=== PATIENT | male | born 1950 | race Hispanic/Latino ===

== ENCOUNTER 2017-02-12 15:00 | Inpatient (IN) | payer OTHER ==
[~2017-02-12] VITALS: Ht 171.4 cm; Wt 97.8 kg
[~2017-02-12 15:00] MED LIST: FISH1CAP27 PO; IBUP-2076 PO; MULT-40 PO
[2017-07-30 15:55] VITALS: BP 132/71
[2017-07-30 16:10] LABS: APPEARANCE,URINE Clear (CLEAR); BILIRUBIN,URINE Negative (NEGATIVE); COLOR,URINE Yellow (YELLOW); GLUCOSE, URINE (UA) Negative (NEGATIVE); KETONES,URINE Negative (NEGATIVE); LEUKOCYTE ESTERASE ,URINE Negative (NEGATIVE); NITRATE,URINE Negative (NEGATIVE); OCCULT BLOOD,URINE Negative (NEGATIVE); PH,URINE 6.5 (5.0-8.0); PROTEIN,URINE Negative (NEGATIVE)
[2017-07-30] MEDS ORDERED: PRAV40TA3 PO (16:12)
[2017-07-30] MEDS ORDERED: OMEP40CA37 PO (16:12)
[2017-07-30 16:13] LABS: CREATININE 0.9 mg/dL (0.5-1.5); POTASSIUM 4.3 mmol/L (3.5-5.1)
[2017-07-30 16:31] LABS: INR 0.99 (0.85-1.15); PARTIAL THROMBOPLASTIN TIME 26.7 SEC (26.3-35.5); PROTHROMBIN TIME 10.4 SEC (9.6-11.6)
[2017-07-30 16:38] LABS: BASOPHILS % (AUTO) 0.8 % (0.0-5.0); EOSINOPHILS % (AUTO) 5.6 % (0.0-8.0); HEMATOCRIT 42.6 % (42-54); LYMPHOCYTES % (AUTO) 35.5 % (21.0-51.0); MEAN CORPUSCULAR HEMOGLOBIN 30.8 pg (27.0-33.0); MEAN CORPUSCULAR HGB CONC 34.5 g/dL (32.0-36.0); MEAN CORPUSCULAR VOLUME 89.3 fL (79-99); MONOCYTES % (AUTO) 10.7 % (3.0-13.0); NEUTROPHILS % (AUTO) 47.4 % (40.0-77.0); PLATELET COUNT (AUTO) 182 K/uL (130-400); RED BLOOD CELL COUNT(AUTO) 4.77 MIL/uL (4.50-6.20); RED CELL DISTRIBUTION WIDTH 12.9 % (11.0-15.5); WHITE BLOOD COUNT (AUTO) 7.8 K/uL (4.8-10.8)
[2017-08-02] VITALS (23 sets, daily range): BP systolic 112–135; BP diastolic 53–86
[2017-08-02] MEDS: CEFAZOLIN SODIUM 1 GM VIAL IVP SCH ×3 (09:30→18:19)
[2017-08-02] MEDS ORDERED: LACTATED RINGERS 1000ML 1,000 ML IV ONE (09:47)
[2017-08-02] MEDS ORDERED: LIDOCAINE PF 2% 5ML ABBOJECT ONE (09:54)
[2017-08-02] MEDS ORDERED: PROPOFOL 10 MG/ML 20ML VIAL IV ONE (09:54)
[2017-08-02] MEDS ORDERED: NEOSTIGMINE METHYLSULFATE 1MG/ML IV ONE (09:54)
[2017-08-02] MEDS ORDERED: DEXAMETHASONE SOD PHOSPHATE 10MG/ML 1ML VIAL ONE (09:54)
[2017-08-02] MEDS ORDERED: MIDAZOLAM HCL 1 MG/ML 2ML VIAL ONE (09:54)
[2017-08-02] MEDS ORDERED: ONDANSETRON HCL 4 MG/2 ML VIAL ONE ×2 (09:54→14:49)
[2017-08-02] MEDS ORDERED: SUCCINYLCHOLINE 200MG/10ML SYR ONE (09:54)
[2017-08-02] MEDS ORDERED: FENTANYL CITRATE PF 50 MCG/1 ML 2ML VIAL ONE ×2 (09:55→11:31)
[2017-08-02] MEDS ORDERED: TRANEXAMIC ACID 1000MG/10ML IV ONE (09:56)
[2017-08-02] MEDS ORDERED: BUPIVACAINE/EPI/PF 0.25% 30ML VIAL IJ ONE (09:56)
[2017-08-02] MEDS ORDERED: CEFAZOLIN SODIUM 1 GM VIAL ONE ×2 (09:56→11:20)
[2017-08-02] MEDS ORDERED: ACETAMINOPHEN EXTRA STRENGTH 500 MG TABLET ONE (10:20)
[2017-08-02] MEDS ORDERED: KETOROLAC TROMETHAMINE 15MG/ML ONE (10:20)
[2017-08-02] MEDS ORDERED: OXYCODONE HCL 10 MG TAB.SR.12H PO ONE (10:21)
[2017-08-02] MEDS ORDERED: METOCLOPRAMIDE 10 MG/2 ML VIAL ONE (10:21)
[2017-08-02] MEDS ORDERED: CELECOXIB 200 MG CAP ONE (10:21)
[2017-08-02] MEDS ORDERED: GLYCOPYRROLATE 0.2 MG/ML 5 ML VIAL ONE (13:06)
[2017-08-02] MEDS ORDERED: LIDOCAINE HCL-MPF 1% 2ML VIAL IVP PRN (13:15)
[2017-08-02] MEDS ORDERED: FERROUS FUMARATE 324 MG TABLET PO PRN (13:15)
[2017-08-02] MEDS ORDERED: POTASSIUM CHLORIDE 20MEQ/100ML 100 ML IV PRN (13:15)
[2017-08-02] MEDS: ACETAMINOPHEN 325 MG TAB PO SCH ×2 (13:15→18:20)
[2017-08-02] MEDS ORDERED: POTASSIUM CHLORIDE 20 MEQ ERTAB PO PRN (13:15)
[2017-08-02] MEDS ORDERED: POTASSIUM CHLORIDE 10% ELIXIR 20 MEQ/15 ML UDCUP PO PRN (13:15)
[2017-08-02] MEDS ORDERED: TEMAZEPAM 15 MG CAPSULE PO PRN (13:15)
[2017-08-02] MEDS ORDERED: DIPHENHYDRAMINE HCL 25 MG CAPSULE PO PRN (13:15)
[2017-08-02] MEDS ORDERED: DiphenhydrAMINE HCL 50 MG/ML VIAL IVP PRN (13:15)
[2017-08-02] MEDS ORDERED: PROMETHAZINE HCL 25 MG/ML 1ML AMPULE IM PRN (13:15)
[2017-08-02] MEDS ORDERED: OXYCODONE HCL 5 MG TAB PO PRN ×2 (13:15)
[2017-08-02] MEDS ORDERED: KETOROLAC TROMETHAMINE 15MG/ML IV PRN (13:15)
[2017-08-02] MEDS ORDERED: MEPERIDINE-PF 25 MG/ML SYG ONE ×2 (14:13→14:48)
[2017-08-02] MEDS: SODIUM CHLORIDE 0.9% 1000ML 1,000 ML IV SCH ×2 (16:26→23:36)
[2017-08-02] MEDS ORDERED: CEFAZOLIN 2GM / 50 ML 50 ML IV SCH (18:15)
[2017-08-02] MEDS ORDERED: IBUPROFEN 400 MG TABLET PO PRN (19:00)
[2017-08-02] MEDS: ATORVASTATIN CALCIUM 10 MG TABLET PO SCH (19:58)
[2017-08-02] MEDS: PREGABALIN 25 MG CAP PO SCH (19:58)
[2017-08-02] MEDS: CELECOXIB 200 MG CAP PO SCH (19:58)
[2017-08-02] MEDS: ASPIRIN 325 MG TABLET PO SCH (19:58)
[2017-08-02] MEDS: FAMOTIDINE 20MG TAB 20 MG TAB PO SCH (19:58)
[2017-08-03] VITALS: BP 115/70
[2017-08-03] MEDS: CEFAZOLIN SODIUM 1 GM VIAL IVP SCH (02:05)
[2017-08-03] MEDS: ACETAMINOPHEN 325 MG TAB PO SCH ×4 (02:06→20:08)
[2017-08-03 04:00] VITALS: BP 113/66
[2017-08-03 05:50] LABS: HEMATOCRIT 35.3 % (42-54); MEAN CORPUSCULAR HEMOGLOBIN 30.6 pg (27.0-33.0); MEAN CORPUSCULAR HGB CONC 34.3 g/dL (32.0-36.0); MEAN CORPUSCULAR VOLUME 89.1 fL (79-99); PLATELET COUNT (AUTO) 156 K/uL (130-400); RED BLOOD CELL COUNT(AUTO) 3.97 MIL/uL (4.50-6.20); RED CELL DISTRIBUTION WIDTH 13.1 % (11.0-15.5)
[2017-08-03 06:16] LABS: CREATININE 0.8 mg/dL (0.5-1.5); POTASSIUM 4.1 mmol/L (3.5-5.1)
[2017-08-03 07:38] VITALS: BP 121/55
[2017-08-03] MEDS: POLYETHYLENE GLYCOL 3350 17 GM POWD.PACK PO SCH (08:25)
[2017-08-03] MEDS: ASPIRIN 325 MG TABLET PO SCH ×2 (08:26→20:08)
[2017-08-03] MEDS: FISH OIL 1000 MG/CAP PO SCH (08:26)
[2017-08-03] MEDS: MULTIVITAMIN TABLET PO SCH (08:26)
[2017-08-03] MEDS: TAMSULOSIN HCL 0.4 MG CAP.ER.24H PO SCH (08:26)
[2017-08-03] MEDS: FAMOTIDINE 20MG TAB 20 MG TAB PO SCH ×2 (08:26→20:08)
[2017-08-03] MEDS: PREGABALIN 25 MG CAP PO SCH ×2 (08:26→20:09)
[2017-08-03] MEDS: CELECOXIB 200 MG CAP PO SCH ×2 (08:26→20:08)
[2017-08-03] MEDS: PANTOPRAZOLE SODIUM 40 MG TABLET.DR PO SCH (08:27)
[2017-08-03] MEDS: CALCIUM CARBONATE 500 MG TABLET PO PRN ×2 (08:27→20:12)
[2017-08-03] MEDS: TRAMADOL HCL 50 MG TABLET PO PRN ×2 (08:31→18:28)
[2017-08-03] MEDS: SODIUM CHLORIDE 0.9% 1000ML 1,000 ML IV SCH (09:56)
[2017-08-03 11:26] VITALS: BP 136/53
[2017-08-03] MEDS: PSYLLIUM SEED 1 EACH PACKET PO SCH (12:54)
[2017-08-03 16:20] VITALS: BP 115/57
[2017-08-03 20:00] VITALS: BP 124/67
[2017-08-03] MEDS: ATORVASTATIN CALCIUM 10 MG TABLET PO SCH (20:08)
[2017-08-04] VITALS: BP 144/69
[2017-08-04] MEDS: ACETAMINOPHEN 325 MG TAB PO SCH ×4 (01:37→18:18)
[2017-08-04 04:00] VITALS: BP 127/73
[2017-08-04 04:05] LABS: HEMATOCRIT 30.5 % (42-54); MEAN CORPUSCULAR HEMOGLOBIN 32.4 pg (27.0-33.0); MEAN CORPUSCULAR HGB CONC 36.4 g/dL (32.0-36.0); MEAN CORPUSCULAR VOLUME 89.1 fL (79-99); PLATELET COUNT (AUTO) 135 K/uL (130-400); RED BLOOD CELL COUNT(AUTO) 3.43 MIL/uL (4.50-6.20); RED CELL DISTRIBUTION WIDTH 13.3 % (11.0-15.5); WHITE BLOOD COUNT (AUTO) 12.3 K/uL (4.8-10.8)
[2017-08-04 04:19] LABS: CREATININE 0.9 mg/dL (0.5-1.5)
[2017-08-04 07:46] VITALS: BP 125/72
[2017-08-04] MEDS: TAMSULOSIN HCL 0.4 MG CAP.ER.24H PO SCH (08:57)
[2017-08-04] MEDS: PANTOPRAZOLE SODIUM 40 MG TABLET.DR PO SCH (08:57)
[2017-08-04] MEDS: POLYETHYLENE GLYCOL 3350 17 GM POWD.PACK PO SCH (08:57)
[2017-08-04] MEDS: TRAMADOL HCL 50 MG TABLET PO PRN (08:57)
[2017-08-04] MEDS: CALCIUM CARBONATE 500 MG TABLET PO PRN (08:57)
[2017-08-04] MEDS: ASPIRIN 325 MG TABLET PO SCH (08:57)
[2017-08-04] MEDS: CELECOXIB 200 MG CAP PO SCH (08:57)
[2017-08-04] MEDS: MULTIVITAMIN TABLET PO SCH (08:57)
[2017-08-04] MEDS: FAMOTIDINE 20MG TAB 20 MG TAB PO SCH (08:57)
[2017-08-04] MEDS: FISH OIL 1000 MG/CAP PO SCH (08:57)
[2017-08-04] MEDS: PREGABALIN 25 MG CAP PO SCH (09:04)
[2017-08-04 11:52] VITALS: BP 138/68
[2017-08-04] MEDS: PSYLLIUM SEED 1 EACH PACKET PO SCH (12:07)
[2017-08-04] MEDS ORDERED: BISACODYL 5 MG TABLET.DR PO PRN (13:15)
[2017-08-04] MEDS ORDERED: ASPI-1012 PO (13:39)
[2017-08-04] MEDS ORDERED: HYDR-309 PO (13:39)
[2017-08-04 16:13] VITALS: BP 124/70
[2017-08-04] MEDS ORDERED: TAMS-1 PO (16:40)
[2017-08-05] MEDS ORDERED: BISACODYL 10 MG SUPP.RECT RC PRN (13:15)
== END 2017-08-04 18:38 | DRG 470 ==
LOC: DAHIP 08-02 09:03 → 4AH 08-02 14:33 → EDSTATUS 08-02 15:30
PROVIDERS: ADMIT Orthopaedic Surgery; ATTEND Orthopaedic Surgery
PROC: 0SRD0J9 Replacement of Left Knee Joint with Synthetic Substitute, Cemented, Open Approach (ICD-10-PCS; principal; 2017-08-02 10:35)
DX: M17.12 Unilateral primary osteoarthritis, left knee (principal); E78.5 Hyperlipidemia, unspecified; M19.90 Unspecified osteoarthritis, unspecified site; G89.29 Other chronic pain; Z28.21 Immunization not carried out because of patient refusal
CPT/HCPCS: 36415; 80048; 81003; 85025; 85027; 85610; 85730; 88305; 88311; 96374; 96375; A4218; C1713; J0330; J0690; J1100; J1885; J2001; J2175; J2250; J2405; J2704; J2710; J2765; J3010; J3490; J7030; J7120

== ENCOUNTER 2022-06-05 20:38 | Emergency (ER) | payer OTHER ==
[~2022-06-05] VITALS: Ht 175.3 cm; Wt 100.7 kg
[~2022-06-05 20:38] MED LIST changes: +ASPI-1012 PO; +HYDR-4457 PO; -IBUP-2076 PO; +OMEP40CA21 PO; +PRAV40TA3 PO; +TAMS-1 PO
[2022-06-05 21:29] LABS: BASOPHILS % (AUTO) 0.4 % (0.0-5.0); HEMATOCRIT 43.4 % (42-54); LYMPHOCYTES % (AUTO) 14.8 % (21.0-51.0); MEAN CORPUSCULAR HEMOGLOBIN 30.2 pg (27.0-33.0); MEAN CORPUSCULAR HGB CONC 33.9 g/dL (32.0-36.0); MEAN CORPUSCULAR VOLUME 89.3 fL (79-99); MONOCYTES % (AUTO) 4.5 % (3.0-13.0); NEUTROPHILS % (AUTO) 78.9 % (40.0-77.0); PLATELET COUNT (AUTO) 185 K/uL (130-400); RED BLOOD CELL COUNT(AUTO) 4.86 MIL/uL (4.50-6.20); RED CELL DISTRIBUTION WIDTH 12.9 % (11.0-15.5); WHITE BLOOD COUNT (AUTO) 11.3 K/uL (4.8-10.8)
[2022-06-05 21:47] LABS: ALBUMIN 3.8 g/dL (3.5-5.0); TOTAL PROTEIN, SERUM 7.7 g/dL (6.0-8.3)
[2022-06-05] MEDS ORDERED: FAMOTIDINE 20MG VIAL IV ONE (22:00)
[2022-06-05] MEDS ORDERED: PROCHLORPERAZINE 10MG/2ML INJ IV ONE (22:00)
[2022-06-06 00:26] LABS: APPEARANCE,URINE CLEAR (CLEAR); BILIRUBIN,URINE NEGATIVE (NEGATIVE); COLOR,URINE LIGHT-YELLOW (YELLOW); GLUCOSE, URINE (UA) NEGATIVE (NEGATIVE); KETONES,URINE 5 mg/dL (NEGATIVE); LEUKOCYTE ESTERASE ,URINE NEGATIVE Leu/uL (NEGATIVE); NITRATE,URINE NEGATIVE (NEGATIVE); OCCULT BLOOD,URINE NEGATIVE (NEGATIVE); PH,URINE 7.5 (5.0-8.0); PROTEIN,URINE NEGATIVE (NEGATIVE); UROBILINOGEN,URINE 0.2 mg/dL (0.2-1.0)
[2022-06-06] MEDS ORDERED: MECLIZINE HCL 25 MG TABLET PO ONE (01:30)
[2022-06-06 01:42] VITALS: BP 128/82
[2022-06-06] MEDS ORDERED: MECL-226 PO (02:05)
== END 2022-06-06 02:24 | disposition home or self-care (01) ==
LOC: EDH 20:38
DX: R42 Dizziness and giddiness (principal); E78.00 Pure hypercholesterolemia, unspecified; I10 Essential (primary) hypertension; Z79.82 Long term (current) use of aspirin; Z79.899 Other long term (current) drug therapy; Z98.890 Other specified postprocedural states
CPT/HCPCS: 99284; 96374; 96375; 84484 ×2; 80053; 83690; 85025; 81003; 36415; 93005; J3490; J0780

== ENCOUNTER 2025-02-06 09:36 | Observation (INO) | payer OTHER, MEDICARE ==
[2025-02-02 11:43] LABS: IMMATURE GRANULOCYTE ABSOLUTE 0.02 K/uL (0-1); NUCLEATED RED BLOOD CELLS 0.0 % (0.0-0.19); PLATELET COUNT (AUTO) 191 K/uL (130-400); RED BLOOD CELL COUNT(AUTO) 4.55 MIL/uL (4.50-6.20); RED CELL DISTRIBUTION WIDTH 13.0 % (11.0-15.5); WHITE BLOOD COUNT (AUTO) 8.9 K/uL (4.8-10.8)
[2025-02-02 11:44] VITALS: BP 104/67; PULSE 80; RESP 13; TEMP 98.1
--- NOTE | 2025-02-02 11:46 | EKG ---
[facility] Test Date: 2025-02-02 Test Time: 11:32:12 Pat Name: RHINA WESLEY Department: [facility] Room: Gender: M Ssrs Report Developer: [id number] : 1950 Requested By: KATIE ALBRECHT Order Number: [id number] Reading MD: Rogelio Farias Measurements Intervals [place] Rate: 65 P: 30 WA: 172 QRS: -63 QRSD: 141 T: 74 QT: 425 QTc: 441 Interpretive Statements Sinus rhythm RBBB and LAFB Probable left ventricular hypertrophy Lateral infarct, old Compared to ECG 06/05/2022 21:30:45 Left anterior fascicular block now present Right bundle-branch block now present Left-axis deviation no longer present Myocardial infarct finding still present Electronically Signed On 02-04-2025 10:54:33 CDT by Rogelio Farias Please click the below link to view image of tracing.
[2025-02-02 11:48] LABS: APPEARANCE,URINE CLEAR (CLEAR); GLUCOSE, URINE (UA) NEGATIVE (NEGATIVE); LEUKOCYTE ESTERASE ,URINE 75 Leu/uL (NEGATIVE); NITRATE,URINE NEGATIVE (NEGATIVE); OCCULT BLOOD,URINE NEGATIVE (NEGATIVE)
[2025-02-02 11:52] LABS: CREATININE 0.8 mg/dL (0.5-1.3); GLOMERULAR FILTR. RATE CALC 92.0 mL/min (>90); GLUCOSE,RANDOM 121.0 mg/dL (70-105); SODIUM SERUM 140.0 mmol/L (136-145); UREA NITROGEN, BLOOD 12.0 mg/dL (7-18)
--- NOTE | 2025-02-02 11:53 | NUR ---
preop INCENTIVE SPIROMETRY TEACHING DONE BY JAVED SUMMERS
[2025-02-02 11:56] LABS: ADD UA MICROSCOPIC YES
[2025-02-02 11:58] LABS: SQUAMOUS EPITHELIAL CELL,UR RARE /HPF (0-2)
[2025-02-02 12:12] LABS: INR 0.99 (0.85-1.15)
--- NOTE | 2025-02-05 10:21 | NUR ---
REPORT REPORTED EKG TO DR STACY. OK TO PROCEED
[~2025-02-06] VITALS: Ht 175.3 cm; Wt 99.3 kg
[2025-02-06] VITALS (21 sets, daily range): BP systolic 113–142; BP diastolic 55–95; PULSE 52–94; RESP 18–24; TEMP 97.5–98.2; O2SAT 93
[~2025-02-06 09:36] MED LIST changes: +ACET-2743 PO; -ASPI-1012 PO; -FISH1CAP27 PO; -HYDR-4457 PO; -MULT-40 PO; -PRAV40TA3 PO; +SIMV-46 PO; -TAMS-1 PO; +TAMS-55 PO
[2025-02-06] MEDS: 0.9%NACL 1000ML 1,000 ML IV ONE (10:26)
[2025-02-06] MEDS: FAMOTIDINE 20MG VIAL IV ONE (11:59)
[2025-02-06] MEDS ORDERED: SUCCINYLCHOLINE CHLORIDE 20 MG/ML 10 ML VIAL ONE (12:58)
[2025-02-06] MEDS ORDERED: LIDOCAINE PF 100MG/5ML (2%) SYRINGE 5ML ONE (12:58)
[2025-02-06] MEDS ORDERED: GLYCOPYRROLATE 0.2 MG/ML 5 ML VIAL ONE (12:58)
[2025-02-06] MEDS ORDERED: NEOSTIGMINE METHYLSULFATE 1MG/ML IV ONE (12:59)
[2025-02-06] MEDS ORDERED: MIDAZOLAM HCL 1 MG/ML 2ML VIAL ONE (13:00)
[2025-02-06] MEDS ORDERED: TRANEXAMIC ACID 1000MG/10ML ONE (13:22)
[2025-02-06] MEDS ORDERED: VANCOMYCIN 500MG+NS 100ML 100 ML IV ONE (13:42)
[2025-02-06] MEDS ORDERED: PoTASSium chloRIDE 20MEQ ER 20 MEQ ERTAB PO PRN ×3 (16:30)
[2025-02-06] MEDS ORDERED: CALCIUM CARB 500MG PO PRN ×3 (16:30)
[2025-02-06] MEDS ORDERED: CYCLOBENZAPRINE HCL 10 MG TABLET PO PRN ×2 (16:30)
[2025-02-06] MEDS ORDERED: FERROUS FUMARATE 324 MG TABLET PO PRN ×3 (16:30)
[2025-02-06] MEDS ORDERED: PoTASSium chl 10% ELIXIR 20MEQ 20 MEQ/15 ML UDCUP PO PRN ×3 (16:30)
[2025-02-06] MEDS ORDERED: 0.9%NACL 1000ML 1,000 ML IV SCH ×2 (16:30)
[2025-02-06] MEDS: TRANEXAMIC ACID 1000MG/10ML ONE (16:47)
--- NOTE | 2025-02-06 17:21 | NUR ---
PATIENT ARRIVED ON UNIT VIA STRETCHER. NO SIGNS OF DISTRESS NOTED. WILL CONTINUE TO MONITOR AND FOLLOW THROUGH WITH ORDERS.
[2025-02-06] MEDS: 0.9%NACL 1000ML 1,000 ML IV SCH (18:00)
--- NOTE | 2025-02-06 18:59 | OP ---
Operative Note: DATE OF PROCEDURE: 02/06/25 SURGEON: KATIE ALBRECHT MD MULTIPLE DRUM SANDER: [Ilsa Barrera CFA] ANESTHESIA: [General anesthesia plus regional block] ANESTHESIOLOGIST/ELECTRICAL INSTRUMENT TECHNICIAN: [Flako Grayson CRNA] PREOPERATIVE DIAGNOSIS: [Right knee osteoarthritis] POSTOPERATIVE DIAGNOSIS: [Same] IMPLANTS: [Biomet vanguard. Femur size 67.5 right PS. Tibia size 79 fixed cruciate. Patella size 34 by 9 asymmetric. Tibial liner size 79/83 by 14 PS] PROCEDURE: [Right total knee arthroplasty] ESTIMATED BLOOD LOSS: [150 mL] INDICATIONS: [74-year-old male with a history of severe pain to the right knee secondary to osteoarthritis that has a longer responded to conservative treatment. The patient is brought to the operating room for a total knee arthroplasty, procedure that he understood as well as the risks, benefits and possible complications involved. The patient agreed signed the consent form.] DESCRIPTION OF PROCEDURE: [After adequate general anesthesia was achieved and regional block obtained the right lower extremity was prepped and draped in the usual manner previous placement of the tourniquet in the proximal thigh. The extremity was then elevated and exsanguinated with an Esmarch bandage and the tourniquet inflated to 300 mmHg the Esmarch band been then removed. With the knee in flexion a longitudinal incision was then made in the anterior aspect t hrough the skin followed by dissection of the subcutaneous tissue. A bone infusion needle was then inserted just medial to the tibial tuberosity and through this needle we injected into the bone a solution of normal saline 50 mL mixed with 500 mg of vancomycin. The needle was removed. A paramedian approach was then made with the Bovie cautery cutting through the quadriceps tendon, medial patellar retinaculum and patellar tendon retinaculum. The retropatellar tendon fat was then excised and the soft tissue elements of the tibia were elevated subperiosteally and retractors were applied medially and laterally . The anterior and posterior cruciate ligaments were resected. With the use of a drill a starting hole was made in the distal femur entering the intramedullary canal and then after removal of the drill an intramedullary guide was inserted with a 5 degree valgus block that touched the distal femur and to this the distal femoral cutting guide was then applied anteriorly and was secured to the distal femur with the use of pins. The intramedullary guide was then removed and with the use of the oscillating saw we proceeded to resect the distal femur removing the fragments and the guide. The femoral sizer was then applied distally and drill holes were made removing the sizer and the 4-in-1 cutting block was then inserted and the anterior, posterior and chamfer cuts were made removing the fragments and the block. The PS cutting guide was then inserted and the intercondylar cut was made removing the fragment and the guide. The posterior cruciate ligament retractor was then inserted posterior to the tibia and this was brought forward proceeding then to apply the external tibial alignment guide and secured the proximal cutting guide to the tibia with the use of pins. With the use of the oscillating saw the proximal cut to the tibia tibia was made. The bone fragment was removed and the trial tibia plate was chosen. At this point the menisci were removed sharply and with the use of the curved osteotome the posterior osteophytes of the femur were removed. The trial components were then inserted at the femur and tibia with a trial tibial liner bringing the knee into extension noticing that the patient had a very stable knee in flexion, extension and with valgus and varus stress. The knee was maintained in extension and the patella was then addressed proceeding to measure its thickness and then with the use of the oscillating saw we removed nine mm from the articular surface and restored the height with application of a trial component after 3 peg holes were made. The patellofemoral ligament was removed and then the patellofemoral tracking was checked noticing to be normal. At this moment all the components were removed, the tibia after the metaphyseal defect was created and while cement was being mixed on the back table we proceeded to irrigate the joint with antibiotic solution and then cover the entry to the femoral canal with a bone plug. Once the cement was ready we proceeded to apply it first to the tibia surface inserting the final component and then to the femoral surface and inserted the final component removing the excess cement and then applying a trial liner bringing the knee into extension for compression. Then we proceeded to irrigate the patella surface and dried it applying then bone cement and the final patellar component was inserted and was secured with application of a clamp. The joint was irrigated with a warm diluted Betadine solution while the cement dried followed by irrigation with antibiotic solution. The trial liner was removed as well as the patellar clamp and we proceeded then to irrigate the posterior aspect of the joint to remove all the remaining debris and the final tibial liner was inserted and locked against the tibia. The range of motion was checked and noticed to be adequate with full extension and flexion, no laxity in valgus or varus stress and with adequate patellofemoral tracking. The patient had no anterior or posterior drawer. The tourniquet was then deflated and this was followed by hemostasis and the wound was then closed with approximation of the quadriceps tendon, patellar retinaculum and patellar tendon retinaculum with #1 Vicryl close stitches alternating with #1 Ethibond stitches, and closure of the subcutaneous tissue with 2-0 Monocryl inverted stitches and the skin was closed with 3-0 Monocryl subcuticularly. The wound was covered with a suction dressing followed by application of an Marcelino bandage for compression and the drapes were then removed transferring the patient to the hospital bed and taken to recovery room for follow-up by anesthesia. There were no complications during the procedure.] KATIE ALBRECHT MD Feb 06, 2025 18:59
--- NOTE | 2025-02-06 20:00 | NUR ---
NURSING ROUNDS PATIENT AWAKE, ALERT AND ORIENTED X 4, STATED MILD PAIN 3/10 TO RIGHT KNEE INCISION, PRN TRAMADOL ADMINISTERED ALONG WITH SCHEDULED MEDICATIONS. PATIENT STATED UNABLE TO VOID YET, DENIES ABDOMINAL DISCOMFORT, NO ABDOMINAL DISTENTION AT THIS TIME. PATIENT IS DUE TO VOID AT 2321. PATIENT ASSISTED TO EDGE OF BED TO ATTEMPT TO VOID BETTER, BUT PATIENT STATED UNABLE TO AT THIS TIME AND WAS ASSISTED BACK TO LAYING POSITION. PATIENT INSTRUCTED TO PUSH CALL BUTTON IF NEEDING ASSISTANCE TO SIT AT EDGE OF BED TO VOID. CALL BUTTON LEFT WITHIN PATIENT REACH, BED ALARM ARMED.
[2025-02-06] MEDS: FAMOTIDINE 20MG TAB PO SCH (20:15)
[2025-02-06] MEDS: ASPIRIN 81 MG EC TAB PO SCH (20:16)
--- NOTE | 2025-02-06 22:50 | NUR ---
NURSING ROUND PATIENT WAS ABLE TO VOID 150ML OF URINE AT THIS TIME, STATED FEEL BETTER BUT IS KEEPING URINAL CLOSE BY. PATIENT STATED HAS A HISTORY OF URINARY INCONTINENCE AFTER SURGERIES SO WILL KEEP TRYING TO VOID MORE FREQUENTLY. SCD'S IN PLACE, CALL LIGHT WITHIN REACH AND BED ALARM ARMED.
[2025-02-07] VITALS (8 sets, daily range): BP systolic 129–156; BP diastolic 70–81; PULSE 63–71; RESP 16–18; TEMP 98–99.1; O2SAT 94
--- NOTE | 2025-02-07 | NUR ---
NURSING ROUND PATIENT LAYING IN BED ASLEEP, RESPONSIVE WHEN SPOKEN TO. PATIENT VERBALLY DENIES PAIN TO RIGHT KNEE. PATIENT ALSO NOTED TO HAVE URINATED ANOTHER 100MLS.
--- NOTE | 2025-02-07 02:10 | NUR ---
NURSING ROUNDS PATIENT URINATED 150ML AT THIS TIME IN URINAL, PATIENT DENIES PAIN TO RIGHT KNEE AT THIS TIME.
--- NOTE | 2025-02-07 04:10 | NUR ---
URINARY RETENTION PATIENT URINATED ANOTHER 100 ML, PATIENT STATED FEELS LIKE IS NOT COMPLETELY EMPTYING BLADDER. BLADDER SCAN SHOWS 880 ML. IN AND OUT DONE, TOLERATED WITHOUT DIFFICULTY. 1000 ML REMOVED FROM BLADDER. PATIENT STATED "ME SIENTO MEJOR". PATIENT CONTINUES TO DENY PAIN TO RIGHT KNEE AT THIS TIME. OFFERED PATIENT TO CHANGE OUT OF GOWN INTO PAJAMAS AT THIS TIME AND ASSISTED TO CHANGE INTO PATIENT CLOTHING. CALL LIGHT WITHIN REACH, SCD'S REAPPLIED AND BED ALARM ARMED.
[2025-02-07 05:39] LABS: NUCLEATED RED BLOOD CELLS 0.0 % (0.0-0.19); PLATELET COUNT (AUTO) 140.0 K/uL (130-400); RED BLOOD CELL COUNT(AUTO) 3.94 MIL/uL (4.50-6.20); RED CELL DISTRIBUTION WIDTH 12.9 % (11.0-15.5); WHITE BLOOD COUNT (AUTO) 13.7 K/uL (4.8-10.8)
[2025-02-07 05:58] LABS: CREATININE 0.9 mg/dL (0.5-1.3); GLOMERULAR FILTR. RATE CALC 89.0 mL/min (>90); GLUCOSE,RANDOM 163.0 mg/dL (70-105); SODIUM SERUM 140.0 mmol/L (136-145); UREA NITROGEN, BLOOD 12.0 mg/dL (7-18)
--- NOTE | 2025-02-07 07:57 | PN ---
Ortho postop day one. This morning the patient is awake alert and oriented. Reporting little to no pain. Vital signs have been stable. He has been afebrile. Patient having some urinary retention had to undergo in and out catheter a 1000 mL of urine was obtained and is pending to void this morning. Discussed with the patient that we are going to give this some time however if there is no improvement we may have to introduce indwelling catheter and refer to his urologist. Laboratory results reviewed noted to have a drop in hemoglobin and hematocrit as expected. Currently patient is asymptomatic we will continue to observe and treat per protocol as necessary. Reinforced incentive spirometry. He has bilateral SCD compression sleeves on. Ice present to the op-site. Dressing is intact. Distal neurovascular intact. Negative Homans. pending physical therapy this morning. Anticipated discharge goal is a skilled nurse facility in [place] Assessment: Status post RT TKA. Acute postoperative blood loss anemia. Plan: Continue with Dr. Pickens TKA protocol and discharge planning. Acute postoperative blood loss anemia addressed with the protocol Vitals/Labs Vital Signs Date Time Temp Pulse Resp B/P (MAP) Pulse Ox O2 Delivery O2 Flow Rate FiO2 02/07/25 03:55 98.1 71 18 132/70 96 Room Air 21 02/06/25 20:15 2.0 Laboratory Tests 02/07/25 05:21 Medications Current Medications Cefazolin Sodium 2 gm STK-MED ONCE .ROUTE; Start 02/06/25 at 10:26; Stop 02/06/25 at 10:26; Status DC Sodium Chloride 1,000 ml @ As Directed STK-MED ONCE IV; Start 02/06/25 at 10:26; Stop 02/06/25 at 10:26; Status DC Famotidine 20 mg STK-MED ONCE IV; Start 02/06/25 at 11:59; Stop 02/06/25 at 11:59; Status DC Acetaminophen 100 ml @ As Directed STK-MED ONCE .ROUTE; Start 02/06/25 at 11:59; Stop 02/06/25 at 12:00; Status DC Lidocaine HCl 100 mg STK-MED ONCE .ROUTE; Start 02/06/25 at 12:58; Stop 02/06/25 at 12:59; Status DC Ondansetron HCl 4 mg STK-MED ONCE .ROUTE; Start 02/06/25 at 12:58; Stop 02/06/25 at 12:59; Status DC Dexamethasone Sodium Phosphate 10 mg STK-MED ONCE .ROUTE; Start 02/06/25 at 12:58; Stop 02/06/25 at 12:59; Status DC Succinylcholine Chloride 200 mg STK-MED ONCE .ROUTE; Start 02/06/25 at 12:58; Stop 02/06/25 at 12:59; Status DC Glycopyrrolate 1 mg STK-MED ONCE .ROUTE; Start 02/06/25 at 12:58; Stop 02/06/25 at 12:59; Status DC Propofol 200 mg STK-MED ONCE IV; Start 02/06/25 at 12:59; Stop 02/06/25 at 12:59; Status DC Neostigmine Methylsulfate 10 mg STK-MED ONCE IV; Start 02/06/25 at 12:59; Stop 02/06/25 at 12:59; Status DC Rocuronium [place] 50 mg STK-MED ONCE .ROUTE; Start 02/06/25 at 12:59; Stop 02/06/25 at 12:59; Status DC Fentanyl Citrate 100 mcg STK-MED ONCE .ROUTE; Start 02/06/25 at 13:00; Stop 02/06/25 at 13:00; Status DC Midazolam HCl 2 mg STK-MED ONCE .ROUTE; Start 02/06/25 at 13:00; Stop 02/06/25 at 13:00; Status DC Ketamine HCl 50 mg STK-MED ONCE .ROUTE; Start 02/06/25 at 13:03; Stop 02/06/25 at 13:03; Status DC Tranexamic Acid 1,000 mg STK-MED ONCE .ROUTE; Start 02/06/25 at 13:22; Stop 02/06/25 at 13:22; Status DC Cefazolin Sodium 1 gm STK-MED ONCE .ROUTE; Start 02/06/25 at 13:41; Stop 02/06/25 at 13:42; Status DC Vancomycin HCl 100 ml @ As Directed STK-MED ONCE IV; Start 02/06/25 at 13:42; Stop 02/06/25 at 13:42; Status DC Fentanyl Citrate 100 mcg STK-MED ONCE .ROUTE; Start 02/06/25 at 15:13; Stop 02/06/25 at 15:14; Status DC Ephedrine Sulfate 50 mg STK-MED ONCE .ROUTE; Start 02/06/25 at 15:45; Stop 02/06/25 at 15:45; Status DC Sodium Chloride 1,000 ml @ 100 mls/hr Q10H IV Last administered on 02/06/25at 18:00; Start 02/06/25 at 16:30; Stop 02/07/25 at 16:29 Polyethylene Glycol 17 gm DAILY PO; Start 02/07/25 at 09:00; Stop 03/09/25 at 08:59 Bisacodyl 10 mg DAILY PRN RC; Start 02/09/25 at 16:30; Stop 03/11/25 at 16:29 Ferrous Fumarate 324 mg DAILY PRN PO; Start 02/06/25 at 16:30; Stop 03/08/25 at 16:29 Ondansetron HCl 4 mg Q6H PRN IVP; Start 02/06/25 at 16:30; Stop 03/08/25 at 16:29 Calcium Carbonate 500 mg Q12H PRN PO; Start 02/06/25 at 16:30; Stop 03/08/25 at 16:29 Diphenhydramine HCl 25 mg Q6H PRN IVP; Start 02/06/25 at 16:30; Stop 03/08/25 at 16:29 Potassium Chloride 100 ml @ 100 mls/hr AD PRN IV; Start 02/06/25 at 16:30; Stop 03/08/25 at 16:29 Potassium Chloride 20 meq AD PRN PO; Start 02/06/25 at 16:30; Stop 03/08/25 at 16:29 Potassium Chloride 20 meq AD PRN PO; Start 02/06/25 at 16:30; Stop 03/08/25 at 16:29 Sodium Chloride 1,000 ml @ 100 mls/hr Q10H IV; Start 02/06/25 at 16:30; Stop 02/06/25 at 16:29; Status DC Polyethylene Glycol 17 gm DAILY PO; Start 02/07/25 at 09:00; Stop 02/06/25 at 16:29; Status DC Bisacodyl 10 mg DAILY PRN RC; Start 02/09/25 at 16:30; Stop 02/06/25 at 16:29; Status DC Ferrous Fumarate 324 mg DAILY PRN PO; Start 02/06/25 at 16:30; Stop 02/06/25 at 16:29; Status DC Ondansetron HCl 4 mg Q6H PRN IVP; Start 02/06/25 at 16:30; Stop 02/06/25 at 16:30; Status DC Calcium Carbonate 500 mg Q12H PRN PO; Start 02/06/25 at 16:30; Stop 02/06/25 at 16:30; Status DC Diphenhydramine HCl 25 mg Q6H PRN IVP; Start 02/06/25 at 16:30; Stop 02/06/25 at 16:30; Status DC Cyclobenzaprine HCl 5 mg Q8H PRN PO; Start 02/06/25 at 16:30; Stop 03/08/25 at 16:29 Gabapentin 100 mg TID PO Last administered on 02/06/25at 20:15; Start 02/06/25 at 21:00; Stop 03/08/25 at 20:59 Potassium Chloride 100 ml @ 100 mls/hr AD PRN IV; Start 02/06/25 at 16:30; Stop 02/06/25 at 16:30; Status DC Potassium Chloride 20 meq AD PRN PO; Start 02/06/25 at 16:30; Stop 02/06/25 at 16:30; Status DC Potassium Chloride 20 meq AD PRN PO; Start 02/06/25 at 16:30; Stop 02/06/25 at 16:30; Status DC Sodium Chloride 1,000 ml @ 100 mls/hr Q10H IV; Start 02/06/25 at 16:30; Stop 02/06/25 at 17:24; Status DC Polyethylene Glycol 17 gm DAILY PO; Start 02/07/25 at 09:00; Stop 02/06/25 at 17:24; Status DC Bisacodyl 10 mg DAILY PRN RC; Start 02/09/25 at 16:30; Stop 02/06/25 at 17:24; Status DC Ketorolac Tromethamine 15 mg Q6H PRN IV; Start 02/06/25 at 16:30; Stop 02/11/25 at 16:29 Famotidine 20 mg BID PO Last administered on 02/06/25at 20:15; Start 02/06/25 at 21:00; Stop 03/08/25 at 20:59 Tamsulosin HCl 0.4 mg BID PO Last administered on 02/06/25at 20:15; Start 02/06/25 at 21:00; Stop 03/08/25 at 20:59 Ferrous Fumarate 324 mg DAILY PRN PO; Start 02/06/25 at 16:30; Stop 02/06/25 at 17:24; Status DC Temazepam 15 mg HS PRN PO; Start 02/06/25 at 16:30; Stop 03/08/25 at 16:29 Ondansetron HCl 4 mg Q6H PRN IVP; Start 02/06/25 at 16:30; Stop 02/06/25 at 17:24; Status DC Calcium Carbonate 500 mg Q12H PRN PO; Start 02/06/25 at 16:30; Stop 02/06/25 at 17:24; Status DC Diphenhydramine HCl 25 mg Q6H PRN IVP; Start 02/06/25 at 16:30; Stop 03/08/25 at 16:29 Insulin Human Regular INSULIN SLIDING SCAL... ACHS SQ Last administered on 02/06/25at 20:37; Start 02/06/25 at 16:30; Stop 03/08/25 at 16:29 Cefazolin Sodium 2 gm Q8H IVPB Last administered on 02/07/25at 05:13; Start 02/06/25 at 21:30; Stop 02/07/25 at 05:31; Status DC Cyclobenzaprine HCl 5 mg Q8H PRN PO; Start 02/06/25 at 16:30; Stop 02/06/25 at 17:24; Status DC Potassium Chloride 100 ml @ 100 mls/hr AD PRN IV; Start 02/06/25 at 16:30; Stop 02/06/25 at 17:24; Status DC Potassium Chloride 20 meq AD PRN PO; Start 02/06/25 at 16:30; Stop 02/06/25 at 17:25; Status DC Potassium Chloride 20 meq AD PRN PO; Start 02/06/25 at 16:30; Stop 02/06/25 at 17:25; Status DC Oxycodone HCl 5 mg Q4H PRN PO; Start 02/06/25 at 16:30; Stop 02/13/25 at 16:29 Oxycodone HCl 10 mg Q4H PRN PO; Start 02/06/25 at 16:30; Stop 02/13/25 at 16:29 Tramadol HCl 50 mg Q6H PRN PO Last administered on 02/07/25at 06:14; Start 02/06/25 at 16:30; Stop 02/11/25 at 16:29 Acetaminophen 1,000 mg Q8H PO Last administered on 02/06/25at 23:31; Start 02/06/25 at 16:30; Stop 03/08/25 at 16:29 Aspirin 81 mg BID PO Last administered on 02/06/25at 20:16; Start 02/06/25 at 21:00; Stop 03/08/25 at 20:59 Tranexamic Acid 1,000 mg STK-MED ONCE .ROUTE Last administered on 02/06/25at 16:47; Start 02/06/25 at 16:44; Stop 02/06/25 at 16:44; Status DC Acetaminophen 1,000 mg AD PRN PO; Start 02/06/25 at 19:00; Stop 02/06/25 at 19:01; Status DC Pantoprazole Sodium 40 mg DAILY PRN PO; Start 02/06/25 at 19:00; Stop 03/08/25 at 18:59 Simvastatin 40 mg PM PO Last administered on 02/06/25at 20:16; Start 02/06/25 at 21:00; Stop 03/08/25 at 20:59 VIVIANE MENDIOLA NP Feb 07, 2025 07:57
--- NOTE | 2025-02-07 09:24 | NUR ---
DC PLAN VISITED WITH PATIENT. PATIENT LIVES ALONE. SEMI INDEPENDENT ABLE TO PERFORM MOST ADL'S. PATIENT HAS PROVIDER 24HRS. USES A CANE. PLAN FOR [facility]. BEVERLY SIGNED. REP NOTIFIED AND PACKET FAXED. Addendum: 02/07/25 at 0971 by DERRELL JUNG RN CM Amended: Links added.
--- NOTE | 2025-02-07 16:30 | NUR ---
Ortho Coordinator: Teaching regarding DVT and pneumonia prevention, pain expectations and pain management. Patient in bed. [facility] professor of marketing utilized, [place] speaking only. B SCD's in place and functioning. JORDAN dressing dry and intact, functioning per light blinking green. Incentive spirometer at bedside. Patient verbalized proper frequency of use of incentive spirometer, rationale provided. Patient return demonstrated proper foot flexion and extension exercises, rationale provided. Pain management strategy reviewed. Patient agreed to call out for pain medication using numeric pain scale and type of pain. Patient intends to discharge to rehab. Reviewed expectations for rehab. Questions answered. Patient instructed to continue pre-medicating prior to physical therapy and periods of high activity, continue incentive spirometer until reaches pre-surgery activity level and to continue foot flexion and extension exercises. Set expectation for patient to shower today, rationale provided. Reviewed care of JORDAN dressing, questions answered. Patient verbalized understanding to all instructions. 1640 Discussed plan of care with primary care team.
--- NOTE | 2025-02-07 18:42 | NUR ---
SHOWERING PATIENT WAS ASKED THROUGHOUT THE DAY IF WANTING TO SHOWER BUT KEPT SETTING IT ASIDE THROUGHOUT THE DAY. PATIENT STATED THAT HE WAS WORRIED ABOUT THE INCISION SITE GETTING WET BUT WAS INFORMED THAT IT WOULD BE WRAPPED. I KEPT ASKING PATIENT MULTIPLE TIMES A DAY JUST TO MAKE SURE HE DIDN'T FORGET HE NEEDED TO SHOWER, BUT KEPT SAYING HE'D SHOWER LATER.
[2025-02-08] VITALS (7 sets, daily range): BP systolic 110–140; BP diastolic 55–74; PULSE 66–81; RESP 16–20; TEMP 97.4–98.8; O2SAT 79–98
[2025-02-08] MEDS: MAGNESIUM CITRATE 296 ML SOLUTION PO ONE (14:38)
--- NOTE | 2025-02-08 15:00 | NUR ---
NOTIFIED PATIENT REPORTED TO DR. ALBRECHT THAT HE HAD NOT HAD A BOWEL MOVEMENT UNTIL MONDAY 02/05. DR. ALBRECHT SET IN ORDER A CONDITIONAL DISCHARGE MEANING PATIENT NEEDS TO POOP TO DISCHARGE TO [facility]. PATIENT GIVEN MAGNESIUM CITRATE TO HAVE A BOWEL MOVEMENT. WILL CONTINUE TO MONITOR.
--- NOTE | 2025-02-08 21:39 | NUR ---
CONTACTED DR. ALBRECHT TO UPDATE HIM. PATIENT DID HAVE A BM. HE SAYS HE WILL COME TOMORROW TO PLACE DISCHARGE ORDERS AND PRESCRIPTIONS.
[2025-02-09] VITALS: BP 124/74; PULSE 76; RESP 20; TEMP 98.5
[2025-02-09 04:00] VITALS: BP 113/60; PULSE 91; RESP 18; TEMP 98.1
[2025-02-09 07:56] VITALS: BP 114/67; PULSE 74; RESP 20; TEMP 98.1
[2025-02-09 08:00] VITALS: O2SAT 100
--- NOTE | 2025-02-09 08:25 | PN ---
Postop day 3. Status post right total knee arthroplasty. Vital signs stable, afebrile The patient was admitted to [facility] yesterday but had difficulty having a bowel movement. Also the patient was seen by me yesterday and was concerned about the fact that he has a Lind catheter. I has been his situation reference of the BPH and common occurrence of retention. I offered the patient to have the Lind removed this morning but with the possibility that we may have to inserted in he is not able to urinate. The patient has decided that he was to keep the Lind for a week or two more and then see his primary doctor or urologist for further removal in the future. The patient is to continue with the Flomax twice a day. In reference to his knee he has been fairly well ambulating and with range of motion. Pain is under control only with Tylenol. He is refusing to take narcotics. The plan will be for him to be dismissed today to [facility] noticing a rehab in [place]. Vitals/Labs Vital Signs Date Time Temp Pulse Resp B/P (MAP) Pulse Ox O2 Delivery O2 Flow Rate FiO2 02/09/25 07:56 98.1 74 20 114/67 100 Room Air 02/08/25 19:00 0 21 Medications Current Medications Cefazolin Sodium 2 gm STK-MED ONCE .ROUTE; Start 02/06/25 at 10:26; Stop 02/06/25 at 10:26; Status DC Sodium Chloride 1,000 ml @ As Directed STK-MED ONCE IV; Start 02/06/25 at 10:26; Stop 02/06/25 at 10:26; Status DC Famotidine 20 mg STK-MED ONCE IV; Start 02/06/25 at 11:59; Stop 02/06/25 at 11:59; Status DC Acetaminophen 100 ml @ As Directed STK-MED ONCE .ROUTE; Start 02/06/25 at 11:59; Stop 02/06/25 at 12:00; Status DC Lidocaine HCl 100 mg STK-MED ONCE .ROUTE; Start 02/06/25 at 12:58; Stop 02/06/25 at 12:59; Status DC Ondansetron HCl 4 mg STK-MED ONCE .ROUTE; Start 02/06/25 at 12:58; Stop 02/06/25 at 12:59; Status DC Dexamethasone Sodium Phosphate 10 mg STK-MED ONCE .ROUTE; Start 02/06/25 at 12:58; Stop 02/06/25 at 12:59; Status DC Succinylcholine Chloride 200 mg STK-MED ONCE .ROUTE; Start 02/06/25 at 12:58; Stop 02/06/25 at 12:59; Status DC Glycopyrrolate 1 mg STK-MED ONCE .ROUTE; Start 02/06/25 at 12:58; Stop 02/06/25 at 12:59; Status DC Propofol 200 mg STK-MED ONCE IV; Start 02/06/25 at 12:59; Stop 02/06/25 at 12:59; Status DC Neostigmine Methylsulfate 10 mg STK-MED ONCE IV; Start 02/06/25 at 12:59; Stop 02/06/25 at 12:59; Status DC Rocuronium [place] 50 mg STK-MED ONCE .ROUTE; Start 02/06/25 at 12:59; Stop 02/06/25 at 12:59; Status DC Fentanyl Citrate 100 mcg STK-MED ONCE .ROUTE; Start 02/06/25 at 13:00; Stop 02/06/25 at 13:00; Status DC Midazolam HCl 2 mg STK-MED ONCE .ROUTE; Start 02/06/25 at 13:00; Stop 02/06/25 at 13:00; Status DC Ketamine HCl 50 mg STK-MED ONCE .ROUTE; Start 02/06/25 at 13:03; Stop 02/06/25 at 13:03; Status DC Tranexamic Acid 1,000 mg STK-MED ONCE .ROUTE; Start 02/06/25 at 13:22; Stop 02/06/25 at 13:22; Status DC Cefazolin Sodium 1 gm STK-MED ONCE .ROUTE; Start 02/06/25 at 13:41; Stop 02/06/25 at 13:42; Status DC Vancomycin HCl 100 ml @ As Directed STK-MED ONCE IV; Start 02/06/25 at 13:42; Stop 02/06/25 at 13:42; Status DC Fentanyl Citrate 100 mcg STK-MED ONCE .ROUTE; Start 02/06/25 at 15:13; Stop 02/06/25 at 15:14; Status DC Ephedrine Sulfate 50 mg STK-MED ONCE .ROUTE; Start 02/06/25 at 15:45; Stop 5 at 15:45; Status DC Sodium Chloride 1,000 ml @ 100 mls/hr Q10H IV Last administered on 02/06/25at 18:00; Start 02/06/25 at 16:30; Stop 02/07/25 at 16:29; Status DC Polyethylene Glycol 17 gm DAILY PO Last administered on 02/08/25at 07:42; Start 02/07/25 at 09:00; Stop 03/09/25 at 08:59 Bisacodyl 10 mg DAILY PRN RC; Start 02/09/25 at 16:30; Stop 03/11/25 at 16:29 Ferrous Fumarate 324 mg DAILY PRN PO; Start 02/06/25 at 16:30; Stop 03/08/25 at 16:29 Ondansetron HCl 4 mg Q6H PRN IVP; Start 02/06/25 at 16:30; Stop 03/08/25 at 16:29 Calcium Carbonate 500 mg Q12H PRN PO; Start 02/06/25 at 16:30; Stop 03/08/25 at 16:29 Diphenhydramine HCl 25 mg Q6H PRN IVP; Start 02/06/25 at 16:30; Stop 03/08/25 at 16:29 Potassium Chloride 100 ml @ 100 mls/hr AD PRN IV; Start 02/06/25 at 16:30; Stop 03/08/25 at 16:29 Potassium Chloride 20 meq AD PRN PO; Start 02/06/25 at 16:30; Stop 03/08/25 at 16:29 Potassium Chloride 20 meq AD PRN PO; Start 02/06/25 at 16:30; Stop 03/08/25 at 16:29 Sodium Chloride 1,000 ml @ 100 mls/hr Q10H IV; Start 02/06/25 at 16:30; Stop 02/06/25 at 16:29; Status DC Polyethylene Glycol 17 gm DAILY PO; Start 02/07/25 at 09:00; Stop 02/06/25 at 16:29; Status DC Bisacodyl 10 mg DAILY PRN RC; Start 02/09/25 at 16:30; Stop 02/06/25 at 16:29; Status DC Ferrous Fumarate 324 mg DAILY PRN PO; Start 02/06/25 at 16:30; Stop 02/06/25 at 16:29; Status DC Ondansetron HCl 4 mg Q6H PRN IVP; Start 02/06/25 at 16:30; Stop 02/06/25 at 16:30; Status DC Calcium Carbonate 500 mg Q12H PRN PO; Start 02/06/25 at 16:30; Stop 02/06/25 at 16:30; Status DC Diphenhydramine HCl 25 mg Q6H PRN IVP; Start 02/06/25 at 16:30; Stop 02/06/25 at 16:30; Status DC Cyclobenzaprine HCl 5 mg Q8H PRN PO; Start 02/06/25 at 16:30; Stop 03/08/25 at 16:29 Gabapentin 100 mg TID PO Last administered on 02/08/25at 21:00; Start 02/06/25 at 21:00; Stop 03/08/25 at 20:59 Potassium Chloride 100 ml @ 100 mls/hr AD PRN IV; Start 02/06/25 at 16:30; Stop 02/06/25 at 16:30; Status DC Potassium Chloride 20 meq AD PRN PO; Start 02/06/25 at 16:30; Stop 02/06/25 at 16:30; Status DC Potassium Chloride 20 meq AD PRN PO; Start 02/06/25 at 16:30; Stop 02/06/25 at 16:30; Status DC Sodium Chloride 1,000 ml @ 100 mls/hr Q10H IV; Start 02/06/25 at 16:30; Stop 02/06/25 at 17:24; Status DC Polyethylene Glycol 17 gm DAILY PO; Start 02/07/25 at 09:00; Stop 02/06/25 at 17:24; Status DC Bisacodyl 10 mg DAILY PRN RC; Start 02/09/25 at 16:30; Stop 02/06/25 at 17:24; Status DC Ketorolac Tromethamine 15 mg Q6H PRN IV; Start 02/06/25 at 16:30; Stop 02/11/25 at 16:29 Famotidine 20 mg BID PO Last administered on 02/08/25at 21:00; Start 02/06/25 at 21:00; Stop 03/08/25 at 20:59 Tamsulosin HCl 0.4 mg BID PO Last administered on 02/08/25at 21:00; Start 02/06/25 at 21:00; Stop 03/08/25 at 20:59 Ferrous Fumarate 324 mg DAILY PRN PO; Start 02/06/25 at 16:30; Stop 02/06/25 at 17:24; Status DC Temazepam 15 mg HS PRN PO; Start 02/06/25 at 16:30; Stop 03/08/25 at 16:29 Ondansetron HCl 4 mg Q6H PRN IVP; Start 02/06/25 at 16:30; Stop 02/06/25 at 17:24; Status DC Calcium Carbonate 500 mg Q12H PRN PO; Start 02/06/25 at 16:30; Stop 02/06/25 at 1 7:24; Status DC Diphenhydramine HCl 25 mg Q6H PRN IVP; Start 02/06/25 at 16:30; Stop 03/08/25 at 16:29 Insulin Human Regular INSULIN SLIDING SCAL... ACHS SQ Last administered on 02/06/25at 20:37; Start 02/06/25 at 16:30; Stop 03/08/25 at 16:29 Cefazolin Sodium 2 gm Q8H IVPB Last administered on 02/07/25at 05:13; Start 02/06/25 at 21:30; Stop 02/07/25 at 05:31; Status DC Cyclobenzaprine HCl 5 mg Q8H PRN PO; Start 02/06/25 at 16:30; Stop 02/06/25 at 17:24; Status DC Potassium Chloride 100 ml @ 100 mls/hr AD PRN IV; Start 02/06/25 at 16:30; Stop 02/06/25 at 17:24; Status DC Potassium Chloride 20 meq AD PRN PO; Start 02/06/25 at 16:30; Stop 02/06/25 at 17:25; Status DC Potassium Chloride 20 meq AD PRN PO; Start 02/06/25 at 16:30; Stop 02/06/25 at 17:25; Status DC Oxycodone HCl 5 mg Q4H PRN PO; Start 02/06/25 at 16:30; Stop 02/13/25 at 16:29 Oxycodone HCl 10 mg Q4H PRN PO; Start 02/06/25 at 16:30; Stop 02/13/25 at 16:29 Tramadol HCl 50 mg Q6H PRN PO Last administered on 02/07/25at 06:14; Start 02/06/25 at 16:30; Stop 02/11/25 at 16:29 Acetaminophen 1,000 mg Q8H PO Last administered on 02/09/25at 01:25; Start 02/06/25 at 16:30; Stop 03/08/25 at 16:29 Aspirin 81 mg BID PO Last administered on 02/08/25at 21:00; Start 02/06/25 at 21:00; Stop 03/08/25 at 20:59 Tranexamic Acid 1,000 mg STK-MED ONCE .ROUTE Last administered on 02/06/25at 16:47; Start 02/06/25 at 16:44; Stop 02/06/25 at 16:44; Status DC Acetaminophen 1,000 mg AD PRN PO; Start 02/06/25 at 19:00; Stop 02/06/25 at 19:01; Status DC Pantoprazole Sodium 40 mg DAILY PRN PO; Start 02/06/25 at 19:00; Stop 03/08/25 at 18:59 Simvastatin 40 mg PM PO Last administered on 02/08/25at 21:00; Start 02/06/25 at 21:00; Stop 03/08/25 at 20:59 Magnesium Citrate 296 ml ONCE ONCE PO Last administered on 02/08/25at 14:38; Start 02/08/25 at 14:30; Stop 02/08/25 at 14:34; Status DC KATIE ALBRECHT MD Feb 09, 2025 08:25
--- NOTE | 2025-02-09 09:01 | DS ---
DISCHARGE SUMMARY [Date of admission: 02/06/2025 Date of discharge: 02/09/2025 Final diagnosis: Knee osteoarthritis, postoperative urinary retention Surgical procedures: total Knee arthroplasty on Summary of History and Physical: The patient is a year-old with history of severe arthrosis to the knee that has been present for several years and has been treated conservatively with no longer adequate response to treatment. The patient is being admitted for total knee arthroplasty. Previous medical history: Previous surgical history: Family history: Social history: Negative for use of tobacco or alcohol. Allergies: NKDA. Review of system: Negative on admission Hospital course: The patient was admitted and taken to the operating room for a total knee arthroplasty, procedure that went uneventful. Postoperatively the patient remained hemodynamically stable and afebrile. The patient received antibiotic and anticoagulation prophylaxis as per protocol. The patient was evaluated by physical therapy and started rehabilitation treatment with ambulation with the use of walker, weightbearing as tolerated, range of motion exercises and bed transfers. The patient was also evaluated by case management and arrangements were made for discharge. The patient tolerated diet well. On postop day #2 all the arrangements were completed. The dressing was changed and the wound was noted to be stable and the patient was dismissed. Condition on discharge: Good Disposition: The patient will be dismissed . Follow-up will be done at the office in 3 weeks. The patient is to continue with physical therapy and rehabilitation at and be ambulatory with the use of a walker, weightbearing as tolerated. Continue taking pain medication as instructed as well as anticoagulation prophylaxis. Continue with home medications also as instructed and continue with pre admission diet.] KATIE ALBRECHT MD ] KATIE ALBRECHT MD Feb 09, 2025 09:01
[2025-02-09] MEDS ORDERED: AEC81 PO (09:30)
[2025-02-09] MEDS ORDERED: HYDR-4060 PO (09:30)
[2025-02-09 11:48] VITALS: BP 121/60; PULSE 65; RESP 18; TEMP 97.9
--- NOTE | 2025-02-09 15:11 | NUR ---
NURSING NOTE CALLED REPORT FOR PATIENT AND SPOKE TO BRITTANY. ANSWERED ANY QUESTIONS AND CONCERNS NURSE HAD. PENDING BODY FORMER FOR PATIENT.
[2025-02-09 15:20] VITALS: BP 121/74; PULSE 70; RESP 16; TEMP 98.2
--- NOTE | 2025-02-09 17:38 | NUR ---
PATIENT DISCHARGED TO [facility] ID BAND AND IV REMOVED. DISCHARGE INSTRUCTIONS EXPLAINED AND GIVEN TO PATIENT. PATIENT VERBALIZED UNDERSTANDING. BELONGINGS PACKED AND TAKEN BY PATIENT. TRANSFERRED VIA STRETCHER BY FACILITY EMS.
== END 2025-02-09 18:15 ==
LOC: DAH 09:36 → DAHIP 09:37 → 4DH 17:21
PROVIDERS: ADMIT Orthopaedic Surgery; ATTEND Orthopaedic Surgery
DX: M17.11 Unilateral primary osteoarthritis, right knee (principal); M25.562 Pain in left knee; E11.9 Type 2 diabetes mellitus without complications; E78.5 Hyperlipidemia, unspecified; K21.9 Gastro-esophageal reflux disease without esophagitis; R33.9 Retention of urine, unspecified; D62 Acute posthemorrhagic anemia; Z79.899 Other long term (current) drug therapy; Z98.890 Other specified postprocedural states
CPT/HCPCS: 80048 ×2; 85025; 85610; 85730; 87086; 81001; 36415 ×2; 93005; 87641; 27447; 96365; 82948 ×13; 88311; 88304; 97161; 97116 ×5; 97530 ×8; 96366; 85027; J1815 ×2; G0378 ×74; A4223 ×2; A4663; J7120; J3490 ×7; J3010 ×2; J0690 ×4; J1100; J0330; J7030; J2003; J2250; J2704; J2405; J2710; J3373; A9272; A4649 ×3; A4930 ×2; C1713; C1776; A5120; A4215; A4213; A4222; A4221; A4216